=== PATIENT | male | born 1955 | race Caucasian/White ===

== ENCOUNTER 2017-09-01 12:01 | Observation (INO) | payer OTHER ==
[2017-09-01] MEDS ORDERED: Lactated Ringers 1,000 ML IV SCH (13:30)
[2017-09-01] MEDS ORDERED: Levofloxacin/Dextrose 5%-Water 750 MG in Premix Bag 1 BAG IV SCH (13:30)
--- NOTE | 2017-09-01 13:34 | EDM.PDOC ---
ED HPI GENERAL MEDICAL PROBLEM - General Chief Complaint: Lower Extremity Injury/Pain Stated Complaint: CAME FROM CLINIC Time Seen by Provider: 09/01/17 12:51 Source of Information: Reports: Patient, Family, Provider, RN Notes Reviewed History Limitations: Reports: No Limitations - History of Present Illness INITIAL COMMENTS - FREE TEXT/NARRATIVE: 62-year-old gentleman sent over from clinic for evaluation of sepsis, initially presented to the clinic for evaluation of ongoing leg pain and bruise on his leg does have a history of alcohol abuse and dependence has had a history of recent falls fell about 3 days ago initial evaluation by Ms Gregorio clinic provider which included a CBC and BMP and urinalysis, WBC slightly elevated around 12 urine was positive with many bacteria as well as WBCs in urine and positive leukocyte esterase. I did discuss case with her she asked for further evaluation for sepsis and thus he presented to the emergency department. At this time he does admit to having a fever at home with some chills denies any other symptoms such as urinary difficulty no shortness of breath or chest pain he does have a bruise on his right leg he states this happened about 3 days ago when he fell on the floor he does admit to heavy alcohol abuse and dependence usually drinks a sixpack of beer with 3 or 4 shots per evening. Family members are present state the amount alcohol has increased as of late due to social stressors Right Leg Pain Score (Numeric/FACES): 5 - Related Data Allergies Allergy/AdvReac Type Severity Reaction Status Date / Time venom-honey bee Allergy Severe Anaphylactic Verified 09/01/17 14:14 [bee venom (honey bee)] Shock Home Meds: Home Meds *Epi-Pen 0.3 mg IM ASDIRECTED PRN 12/12/12 [History] *Lidocaine Patch 1 patch TOP DAILY 12/12/12 [History] Diltiazem HCl [Diltiazem 24Hr Cd] 240 mg PO DAILY 12/12/12 [History] Pravastatin [Pravachol] 20 mg PO BEDTIME 12/12/12 [History] Valsartan [Diovan] 160 mg PO DAILY 12/12/12 [History] hydroCHLOROthiazide [Hydrochlorothiazide] 25 mg PO DAILY 12/12/12 [History] tiZANidine HCl [Tizanidine HCl] 4 mg PO DAILY 12/12/12 [History] Past Medical History HEENT History: Reports: Cataract, Impaired Vision Cardiovascular History: Reports: Hypertension - Infectious Disease History Infectious Disease History: Reports: TB - Past Surgical History HEENT Surgical History: Reports: Cataract Surgery GI Surgical History: Reports: Colonoscopy Social & Family History - Tobacco Use Smoking Status *Q: Never Smoker - Caffeine Use Caffeine Use: Reports: None - Alcohol Use Days Per Week of Alcohol Use: 7 Number of Drinks Per Day: 10 Total Drinks Per Week: 70 Date of Last Drink: 08/31/17 Time of Last Drink: 20:00 - Recreational Drug Use Recreational Drug Use: No Review of Systems - Review of Systems Review Of Systems: See Below Constitutional: Reports: Chills, Fever Eyes: Reports: No Symptoms Ears: Reports: No Symptoms Nose: Reports: No Symptoms Mouth/Throat: Reports: No Symptoms Respiratory: Reports: No Symptoms Cardiovascular: Reports: No Symptoms GI/Abdominal: Reports: No Symptoms Genitourinary: Reports: No Symptoms Musculoskeletal: Reports: No Symptoms Skin: Reports: No Symptoms ED EXAM, GENERAL - Physical Exam Exam: See Below Free Text/Narrative:: General: Male, not in any distress, alert and oriented x3 HEENT: head is atraumatic normocephalic, eyes pupils equal round reactive to light, sclera clear no conjunctivitis appreciated. Ears tympanic membranes clear and valencia landmarks and light reflex are present bilaterally canals are clear. Nose no septal deviation, nares are clear, no blood present. Mouth mucosa is moist and pink no erythema or exudate noted in soft palate, tongue is midline uvula is midline, dentition is intact. Neck: Supple no thyromegaly no tracheal deviation. Nodes: Cervical nodes subclavicular nodes nontender no palpable lymphadenopathy noted. Lungs: clear to auscultation bilaterally with symmetrical respirations, no adventitious noise appreciated. CV: Regular rate and rhythm S1 and S2 appreciated no murmurs rubs or gallops noted. Abdomen: Soft, nontender, no palpable masses or organomegaly appreciated, no distention no guarding bowel sounds are present, . Neuro: Cranial nerves II through XII grossly intact Skin: Warm and dry, intact, large hematoma appreciated on the right thigh size 12 cm x 6 cm Extremities: No lower extremity edema appreciated, Course - Vital Signs Last Recorded V/S: Last Vital Signs Temp 101.2 F H 09/01/17 14:25 Pulse 92 09/01/17 14:25 Resp 14 09/01/17 14:25 BP 119/66 09/01/17 14:25 Pulse Ox 98 09/01/17 14:25 - Orders/Labs/Meds Orders: Active Orders 24 hr Category Date Time Status Vital Signs [RC] Q1H Care 09/01/17 13:25 Active CULTURE BLOOD [BC] Urgent Lab 09/01/17 13:30 Received CULTURE BLOOD [BC] Urgent Lab 09/01/17 13:43 Received Lactated Ringers [Ringers, Lactated] 1,000 ml Med 09/01/17 13:30 Active IV ASDIRECTED Levofloxacin/Dextrose 5%-Water [Levaquin in D5W 750 MG/ Med 09/01/17 13:30 Active 150 ML] 750 mg Premix Bag 1 bag IV Q24H Potassium Chloride 20 meq Med 09/01/17 14:30 Active Lidocaine 1% [Xylocaine 1%] 2 ml Sodium Chloride 0.9% [Normal Saline] 100 ml IV ONETIME Blood Culture x2 Reflex Set [OM.PC] Urgent Oth 09/01/17 13:25 Ordered Medication Orders Lactated Ringer's (Ringers, Lactated) 1,000 mls @ 999 mls/hr IV ASDIRECTED [facility] Last Admin: 09/01/17 13:46 Dose: 999 mls/hr Levofloxacin/Dextrose 750 mg/ (Premix) 150 mls @ 100 mls/hr IV Q24H [facility] Last Admin: 09/01/17 13:49 Dose: 100 mls/hr Potassium Chloride 20 meq/Lidocaine HCl 2 ml/ Sodium Chloride 112 mls @ 56 mls/ hr IV ONETIME ONE Stop: 09/01/17 16:29 Last Admin: 09/01/17 14:32 Dose: 56 mls/hr Labs: Laboratory Tests 09/01/17 09/01/17 09/01/17 Range/Units 13:43 13:43 13:43 Sodium 125 L (140-148) mmol/L Potassium 2.4 L* (3.6-5.2) mmol/L Chloride 87 L (100-108) mmol/L Carbon Dioxide 30 (21-32) mmol/L Anion Gap 10.4 (5.0-14.0) mmol/L BUN 21 H (7-18) mg/dL Creatinine 1.7 H (0.8-1.3) mg/dL Est Cr Clr Drug Dosing 42.47 mL/min Estimated GFR (MDRD) 41 L (>60) Glucose 100 (74-106) mg/dL Lactic Acid 1.0 (0.4-2.0) mmol/L Calcium 8.3 L (8.5-10.1) mg/dL Total Bilirubin 0.4 (0.2-1.0) mg/dL AST 28 (15-37) U/L ALT 40 (12-78) U/L Alkaline Phosphatase 79 (46-116) U/L Creatine Kinase 44 (39-308) U/L C-Reactive Protein 13.72 H (0.0-0.3) mg/dL Total Protein 6.8 (6.4-8.2) g/dL Albumin 2.5 L (3.4-5.0) g/dL Globulin 4.3 H (2.3-3.5) g/dL Albumin/Globulin Ratio 0.6 L (1.2-2.2) Ethyl Alcohol mg/dL 09/01/17 Range/Units 13:43 Sodium (140-148) mmol/L Potassium (3.6-5.2) mmol/L Chloride (100-108) mmol/L Carbon Dioxide (21-32) mmol/L Anion Gap (5.0-14.0) mmol/L BUN (7-18) mg/dL Creatinine (0.8-1.3) mg/dL Est Cr Clr Drug Dosing mL/min Estimated GFR (MDRD) (>60) Glucose (74-106) mg/dL Lactic Acid (0.4-2.0) mmol/L Calcium (8.5-10.1) mg/dL Total Bilirubin (0.2-1.0) mg/dL AST (15-37) U/L ALT (12-78) U/L Alkaline Phosphatase (46-116) U/L Creatine Kinase (39-308) U/L C-Reactive Protein (0.0-0.3) mg/dL Total Protein (6.4-8.2) g/dL Albumin (3.4-5.0) g/dL Globulin (2.3-3.5) g/dL Albumin/Globulin Ratio (1.2-2.2) Ethyl Alcohol < 3 mg/dL Meds: Medications Generic Name Dose Route Start Last Admin Trade Name Freq PRN Reason Stop Dose Admin Lactated Ringer's 1,000 mls @ 999 mls/hr 09/01/17 13:30 09/01/17 13:46 Ringers, Lactated IV 999 mls/hr ASDIRECTED VINICIUS Administration Levofloxacin/Dextrose 750 mg/ 150 mls @ 100 mls/hr 09/01/17 13:30 09/01/17 13 :49 Premix IV 100 mls/hr Q24H [facility] Administration Potassium Chloride 20 meq/ 112 mls @ 56 mls/hr 09/01/17 14:30 09/01/17 14:32 Lidocaine HCl 2 ml/ Sodium IV 09/01/17 16:29 56 mls/hr Chloride ONETIME ONE Administration Discontinued Medications Generic Name Dose Route Start Last Admin Trade Name Freq PRN Reason Stop Dose Admin Potassium Chloride 40 meq 09/01/17 14:05 09/01/17 14:15 Klor-Con M20 PO 09/01/17 14:06 40 meq ONETIME ONE Administration Departure - Departure Time of Disposition: 14:41 Disposition: Admitted As Inpatient 64 Condition: Fair Clinical Impression: UTI (urinary tract infection) Qualifiers: Urinary tract infection type: acute cystitis Hematuria presence: with hematuria Qualified Code(s): N30.01 - Acute cystitis with hematuria Alcohol dependence Qualifiers: Substance use status: uncomplicated Qualified Code(s): F10.20 - Alcohol dependence, uncomplicated - Discharge Information Referrals: PCP,None [Primary Care Provider] - Forms: ED Department Discharge - My Orders Last 24 Hours: My Active Orders 09/01/17 13:25 Vital Signs [RC] Q1H Blood Culture x2 Reflex Set [OM.PC] Urgent 09/01/17 13:30 CULTURE BLOOD [BC] Urgent Lactated Ringers [Ringers, Lactated] 1,000 ml IV ASDIRECTED Levofloxacin/Dextrose 5%-Water [Levaquin in D5W 750 MG/150 ML] 750 mg Premix Bag 1 bag IV Q24H 09/01/17 13:43 CULTURE BLOOD [BC] Urgent 09/01/17 14:30 Potassium Chloride 20 meq Lidocaine 1% [Xylocaine 1%] 2 ml Sodium Chloride 0.9 % [Normal Saline] 100 ml IV ONETIME - Assessment/Plan Last 24 Hours: My Active Orders 09/01/17 13:25 Vital Signs [RC] Q1H Blood Culture x2 Reflex Set [OM.PC] Urgent 09/01/17 13:30 CULTURE BLOOD [BC] Urgent Lactated Ringers [Ringers, Lactated] 1,000 ml IV ASDIRECTED Levofloxacin/Dextrose 5%-Water [Levaquin in D5W 750 MG/150 ML] 750 mg Premix Bag 1 bag IV Q24H 09/01/17 13:43 CULTURE BLOOD [BC] Urgent 09/01/17 14:30 Potassium Chloride 20 meq Lidocaine 1% [Xylocaine 1%] 2 ml Sodium Chloride 0.9 % [Normal Saline] 100 ml IV ONETIME Plan: Assessment Acuity = acute Site and laterality = urinary tract infection complicated in a gentleman known history of alcohol abuse and dependence Etiology = probable bacterial cause Manifestations = none Location of injury = Home Lab values = sodium low at 125 consistent hyponatremia, potassium low at 2.4 consistent with hypokalemia, creatinine elevated 1.7 consistent with acute renal failure stage GIII a CRP elevated 13.7 albumin low at 2.5 consistent hypoalbuminemia alcohol was negative Plan He was given 1 L of fluids, initially started on 40 mEq potassium orally and 20 mEq IV, started on antibiotics of Levaquin called discussed case with hospitalist education reporter he agreed to come and evaluate the patient emergency department for admission This note was dictated using [employer] voice recognition software please call with any questions on syntax or grammar.
[2017-09-01] MEDS ORDERED: Potassium Chloride 20 MEQ Tab.ER PO ONE (14:05)
[2017-09-01] MEDS ORDERED: Potassium Chloride 20 MEQ, Lidocaine 1% 2 ML in Sodium Chloride 0.9% 100 ML IV SCH (14:15)
[2017-09-01] MEDS ORDERED: Potassium Chloride 20 MEQ, Lidocaine 1% 2 ML in Sodium Chloride 0.9% 100 ML IV ONE (14:30)
--- NOTE | 2017-09-01 15:32 | PCM.HP ---
H&P History of Present Illness - General Date of Service: 09/01/17 Admit Problem/Dx: Admission Diagnosis/Problem Admission Diagnosis/Problem Hypokalemia Source of Information: Patient, Family, Provider History Limitations: Reports: No Limitations - History of Present Illness Initial Comments - Free Text/Narative: Fabio presents to the ER from the clinic. He presented to the clinic with right hip pain after a fall. Laboratory workup in the clinic revealed evidence for urinary tract infection, leukocytosis and some concern for sepsis so he was sent to the emergency room. He reports over the last few days he has been feeling weak and tired. He has not had much of an appetite and has not ate very well. Oral intake including fluids has been less than usual as well. He has had some subjective fevers over the past couple of days and was febrile in the clinic this morning. He reports some intermittent weakness and did have a fall last night. He is currently reporting mild to moderate right lateral hip pain described as achy. He hasn't taken anything to make the pain. Moving makes the pain worse. He has not had abdominal pain, nausea or vomiting. No dysuria or increased urinary frequency. Work up in the emergency room revealed hyponatremia, hypokalemia and acute kidney injury. CRP is elevated at more than 12. He will be admitted for IV antibiotics for his infection as well as potassium supplementation and hydration. Right Leg Pain Score (Numeric/FACES): 5 - Related Data Allergies/Adverse Reactions: Allergies Allergy/AdvReac Type Severity Reaction Status Date / Time venom-honey bee Allergy Severe Anaphylactic Verified 09/01/17 14:14 [bee venom (honey bee)] Shock Home Medications: Home Meds *Epi-Pen 0.3 mg IM ASDIRECTED PRN 12/12/12 [History] *Lidocaine Patch 1 patch TOP DAILY 12/12/12 [History] Diltiazem HCl [Diltiazem 24Hr Cd] 240 mg PO DAILY 12/12/12 [History] Pravastatin [Pravachol] 20 mg PO BEDTIME 12/12/12 [History] Valsartan [Diovan] 160 mg PO DAILY 12/12/12 [History] hydroCHLOROthiazide [Hydrochlorothiazide] 25 mg PO DAILY 12/12/12 [History] tiZANidine HCl [Tizanidine HCl] 4 mg PO BEDTIME 12/12/12 [History] Past Medical History HEENT History: Reports: Cataract, Impaired Vision Cardiovascular History: Reports: Hypertension - Infectious Disease History Infectious Disease History: Reports: TB - Past Surgical History HEENT Surgical History: Reports: Cataract Surgery GI Surgical History: Reports: Colonoscopy Social & Family History - Family History Neurological: Reports: Other (See Below) (tremor - father and brothers) - Tobacco Use Smoking Status *Q: Never Smoker - Caffeine Use Caffeine Use: Reports: None - Alcohol Use Days Per Week of Alcohol Use: 7 Number of Drinks Per Day: 10 Total Drinks Per Week: 70 Date of Last Drink: 08/31/17 Time of Last Drink: 20:00 - Recreational Drug Use Recreational Drug Use: No H&P Review of Systems - Review of Systems: Review Of Systems: See Below Free Text/Narrative: A complete 12 point review of systems was obtained. Pertinent positives and negatives are noted in the history of present illness. All other systems were reviewed and were negative except as noted. Exam - Exam Exam: See Below - Vital Signs Vital Signs: Last Vital Signs Temp 38.4 C H 09/01/17 14:25 Pulse 93 09/01/17 15:00 Resp 16 09/01/17 15:00 BP 124/74 09/01/17 15:00 Pulse Ox 98 09/01/17 14:25 Weight: 73.482 kg - Exam Quality Assessment: No: Supplemental Oxygen General: Alert, Oriented, Cooperative. No: Mild Distress HEENT: Conjunctiva Clear, Pupils Equal. No: Mucosa Moist & [place] (dry), Scleral Icterus Neck: Supple, Trachea Midline. No: Lymphadenopathy, Thyromegaly Lungs: Clear to Auscultation, Normal Respiratory Effort Cardiovascular: Regular Rate, Regular Rhythm. No: Systolic Murmur GI/Abdominal Exam: Normal Bowel Sounds, Soft, No Distention, Tender (mild suprapubic) Back Exam: Normal Inspection. No: Full Range of Motion Extremities: No Pedal Edema. No: Increased Warmth Skin: Warm, Dry, Ecchymosis (right lateral thigh in oval shape) Neuro Extensive - Mental Status: Alert, Oriented x3, Nl Response to Commands Neuro Extensive - Motor, Sensory, Reflexes: CN II-XII Intact, Tremor. No: Dysarthria, Abnormal Motor Psychiatric: Alert, Normal Affect - Patient Data Lab Results Last 24 hrs: Laboratory Results - last 24 hr 09/01/17 09/01/17 09/01/17 Range/Units 13:43 13:43 13:43 Sodium 125 L (140-148) mmol/L Potassium 2.4 L* (3.6-5.2) mmol/L Chloride 87 L (100-108) mmol/L Carbon Dioxide 30 (21-32) mmol/L Anion Gap 10.4 (5.0-14.0) mmol/L BUN 21 H (7-18) mg/dL Creatinine 1.7 H (0.8-1.3) mg/dL Est Cr Clr Drug Dosing 42.47 mL/min Estimated GFR (MDRD) 41 L (>60) Glucose 100 (74-106) mg/dL Lactic Acid 1.0 (0.4-2.0) mmol/L Calcium 8.3 L (8.5-10.1) mg/dL Total Bilirubin 0.4 (0.2-1.0) mg/dL AST 28 (15-37) U/L ALT 40 (12-78) U/L Alkaline Phosphatase 79 (46-116) U/L Creatine Kinase 44 (39-308) U/L C-Reactive Protein 13.72 H (0.0-0.3) mg/dL Total Protein 6.8 (6.4-8.2) g/dL Albumin 2.5 L (3.4-5.0) g/dL Globulin 4.3 H (2.3-3.5) g/dL Albumin/Globulin Ratio 0.6 L (1.2-2.2) Ethyl Alcohol mg/dL 09/01/17 Range/Units 13:43 Sodium (140-148) mmol/L Potassium (3.6-5.2) mmol/L Chloride (100-108) mmol/L Carbon Dioxide (21-32) mmol/L Anion Gap (5.0-14.0) mmol/L BUN (7-18) mg/dL Creatinine (0.8-1.3) mg/dL Est Cr Clr Drug Dosing mL/min Estimated GFR (MDRD) (>60) Glucose (74-106) mg/dL Lactic Acid (0.4-2.0) mmol/L Calcium (8.5-10.1) mg/dL Total Bilirubin (0.2-1.0) mg/dL AST (15-37) U/L ALT (12-78) U/L Alkaline Phosphatase (46-116) U/L Creatine Kinase (39-308) U/L C-Reactive Protein (0.0-0.3) mg/dL Total Protein (6.4-8.2) g/dL Albumin (3.4-5.0) g/dL Globulin (2.3-3.5) g/dL Albumin/Globulin Ratio (1.2-2.2) Ethyl Alcohol < 3 mg/dL Result Diagrams: 09/01/17 13:43 *Q Meaningful Use (ADM) - VTE Risk Assess *Q Each Risk Factor Represents 1 Point: None Total Score 1 Point Risk Factors: 0 Each Risk Factor Represents 2 Points: Age 60 - 74 Years Total Score 2 Point Risk Factors: 2 Each Risk Factor Represents 3 Points: None Total Score 3 Point Risk Factors: 0 Each Risk Factor Represents 5 Points: None Total Score 5 Point Risk Factors: 0 Venous Thromboembolism Risk Factor Score *Q: 2 - Problem List (1) Hypokalemia SNOMED Code(s): 34697408 ICD Code: E87.6 - HYPOKALEMIA Status: Acute Current Visit: Yes (2) Acute kidney injury SNOMED Code(s): 14390536 ICD Code: N17.9 - ACUTE KIDNEY FAILURE, UNSPECIFIED Status: Acute Current Visit: Yes (3) UTI (urinary tract infection) SNOMED Code(s): 58353477 ICD Code: N39.0 - URINARY TRACT INFECTION, SITE NOT SPECIFIED Status: Acute Current Visit: Yes Qualifiers: Urinary tract infection type: acute cystitis Hematuria presence: with hematuria Qualified Code(s): N30.01 - Acute cystitis with hematuria (4) Memory loss SNOMED Code(s): 583389237 ICD Code: R41.3 - OTHER AMNESIA Status: Acute Current Visit: Yes (5) Alcohol dependence SNOMED Code(s): 31093414 ICD Code: F10.20 - ALCOHOL DEPENDENCE, UNCOMPLICATED Status: Acute Current Visit: Yes Qualifiers: Substance use status: uncomplicated Qualified Code(s): F10.20 - Alcohol dependence, uncomplicated (6) Essential hypertension SNOMED Code(s): 06459988 ICD Code: I10 - ESSENTIAL (PRIMARY) HYPERTENSION Status: Chronic Current Visit: Yes Problem List Initiated/Reviewed/Updated: Yes Orders Last 24hrs: Active Orders 24 hr Category Date Time Status Patient Status Manage Transfer [TRANSFER] Routine ADT 09/01/17 15:21 Ordered Vital Signs [RC] Q1H Care 09/01/17 13:25 Active CULTURE BLOOD [BC] Urgent Lab 09/01/17 13:30 Received CULTURE BLOOD [BC] Urgent Lab 09/01/17 13:43 Received Lactated Ringers [Ringers, Lactated] 1,000 ml Med 09/01/17 13:30 Active IV ASDIRECTED Levofloxacin/Dextrose 5%-Water [Levaquin in D5W 750 MG/ Med 09/01/17 13:30 Active 150 ML] 750 mg Premix Bag 1 bag IV Q24H Potassium Chloride 20 meq Med 09/01/17 14:30 Active Lidocaine 1% [Xylocaine 1%] 2 ml Sodium Chloride 0.9% [Normal Saline] 100 ml IV ONETIME Blood Culture x2 Reflex Set [OM.PC] Urgent Oth 09/01/17 13:25 Ordered Resuscitation Status Routine Resus Stat 09/01/17 15:23 Ordered Medication Orders Lactated Ringer's (Ringers, Lactated) 1,000 mls @ 999 mls/hr IV ASDIRECTED [facility] Last Admin: 09/01/17 13:46 Dose: 999 mls/hr Levofloxacin/Dextrose 750 mg/ (Premix) 150 mls @ 100 mls/hr IV Q24H [facility] Last Admin: 09/01/17 13:49 Dose: 100 mls/hr Potassium Chloride 20 meq/Lidocaine HCl 2 ml/ Sodium Chloride 112 mls @ 56 mls/ hr IV ONETIME ONE Stop: 09/01/17 16:29 Last Admin: 09/01/17 14:32 Dose: 56 mls/hr Assessment/Plan Comment:: ASSESSMENT AND PLAN - Hypokalemia - significant decrease in potassium level, likely combination of poor intake with chronic losses secondary to alcohol and Dyazide diuretic use. He has received 60 mEq in the emergency room. -IV fluid with potassium -Repeat level this evening, replace as indicated -Check magnesium level and replace as indicated -Repeat level in the morning Acute kidney injury - secondary to poor intake as well as chronic losses from alcohol dependence. -IV fluids -Repeat labs in the morning Acute cystitis - urine sample strongly suggestive of infection. This could be contributing to his weakness as well as the memory issues as discussed below. He has received levofloxacin in the emergency room. -Reassess antibiotics in the morning -Follow-up urine culture Memory deficits - family reports declining cognitive function with more acute decompensation in the past couple of weeks. Patient does have significant stressors as his is on hospice. Suspect toxic/metabolic with contribution from acute distress. -Head CT to rule out intracranial cause -TSH and B-12 levels in the morning -Outpatient follow-up Alcohol dependence - patient has been drinking 6 beers per night for many many years. No history of alcohol withdrawal. -Counseling about safe alcohol intake Maintenance issues - - DVT prophylaxis - mechanical - GI prophylaxis - not indicated - Nutrition - regular diet - Tuttle catheter - not indicated CODE STATUS - full code Admission justification - patient will be referred observation status for potassium replacement and hydration. Disposition - anticipate discharge to home tomorrow Primary care physician - Ricardo Cameron M.D.
[2017-09-01] MEDS ORDERED: Ondansetron 4 MG/2 ML SDV IV PRN (16:04)
[2017-09-01] MEDS ORDERED: Ondansetron 4 MG Tab.DIS PO PRN (16:04)
[2017-09-01] MEDS ORDERED: Acetaminophen 325 MG Tab PO PRN (16:04)
[2017-09-01] MEDS ORDERED: Ibuprofen 600 MG Tab PO PRN (16:04)
[2017-09-01] MEDS: NS + KCl 20mEq/L 1,000 ML IV SCH (16:59)
[2017-09-01] MEDS ORDERED: Pravastatin 20 MG Tab PO SCH (21:00)
[2017-09-01] MEDS ORDERED: TIZANIDINE HCL 4 MG PO SCH (21:00)
[2017-09-01] MEDS ORDERED: Lidocaine 5% 700 MG Patch TRDERM SCH (21:00)
[2017-09-01] MEDS ORDERED: LIDOCAINE TOP SCH (21:00)
[2017-09-01] MEDS ORDERED: tiZANidine 4 MG Tab PO SCH (21:00)
[2017-09-01] MEDS ORDERED: PRAVASTATIN 20 MG PO SCH (21:00)
--- NOTE | 2017-09-02 00:29 | PCM.SN ---
- Free Text/Narrative Note: time : 2029; call from [address] [place] [address] O: lab Potassium 3.2, last Potassium 2.4 at 15:59 patient has received Potassium 80meq total since admission, has IV fluids with Potassium 20meq per liter A: Hypokalemia resolving P: continue IV fluids with Potassium, recheck Potassium in am.
[2017-09-02] MEDS: NS + KCl 20mEq/L 1,000 ML IV SCH ×2 (00:55→08:35)
[2017-09-02] MEDS ORDERED: Potassium Chloride 20 MEQ Tab.ER PO ONE (09:00)
[2017-09-02] MEDS ORDERED: VALSARTAN 160 MG PO SCH (09:00)
[2017-09-02] MEDS ORDERED: Hydrochlorothiazide 25 MG Tab PO SCH (09:00)
[2017-09-02] MEDS ORDERED: Diltiazem 120 MG Cap.CD PO SCH (09:00)
[2017-09-02] MEDS ORDERED: Non-Formulary Medication 1 Each (Hydrochlorothiazide [Hydrochlorothiazide] 25 MG) PO SCH (09:00)
[2017-09-02] MEDS ORDERED: Non-Formulary Medication 1 Each (Diltiazem Hcl [Diltiazem 24hr Cd] 240 MG) PO SCH (09:00)
--- NOTE | 2017-09-02 09:03 | CR ---
CHEST: 2 view CLINICAL HISTORY:Fever COMPARISON:None FINDINGS: Heart and pulmonary vascularity are normal. Lung ely are clear.. IMPRESSION: No acute cardiac pulmonary process
[2017-09-02] MEDS ORDERED: Ciprofloxacin 500 MG Tab PO SCH (12:00)
[2017-09-02] MEDS ORDERED: Cefdinir 300 MG Cap PO SCH (12:15)
--- NOTE | 2017-09-02 13:41 | PCM.DCSUM1 ---
Discharge Summary - Hospital Course Brief History: 62-year-old male with history of essential hypertension, alcohol dependence and essential tremor who presented with right leg pain after a fall at home. He was admitted for management of a urinary tract infection, hypokalemia and generalized weakness. Diagnosis: Stroke: No - Discharge Data Discharge Date: 09/02/17 Discharge Disposition: Home, Self-Care 01 Condition: Fair - Discharge Diagnosis/Problem(s) (1) Hypokalemia SNOMED Code(s): 28308512 ICD Code: E87.6 - HYPOKALEMIA Status: Acute Current Visit: Yes (2) Acute kidney injury SNOMED Code(s): 15467501 ICD Code: N17.9 - ACUTE KIDNEY FAILURE, UNSPECIFIED Status: Acute Current Visit: Yes (3) UTI (urinary tract infection) SNOMED Code(s): 23436387 ICD Code: N39.0 - URINARY TRACT INFECTION, SITE NOT SPECIFIED Status: Acute Current Visit: Yes Qualifiers: Urinary tract infection type: acute cystitis Hematuria presence: with hematuria Qualified Code(s): N30.01 - Acute cystitis with hematuria (4) Memory loss SNOMED Code(s): 506318293 ICD Code: R41.3 - OTHER AMNESIA Status: Acute Current Visit: Yes (5) Alcohol dependence SNOMED Code(s): 81892954 ICD Code: F10.20 - ALCOHOL DEPENDENCE, UNCOMPLICATED Status: Acute Current Visit: Yes Qualifiers: Substance use status: uncomplicated Qualified Code(s): F10.20 - Alcohol dependence, uncomplicated (6) Essential hypertension SNOMED Code(s): 08111992 ICD Code: I10 - ESSENTIAL (PRIMARY) HYPERTENSION Status: Chronic Current Visit: Yes - Patient Summary/Data Consults: Consultations 09/02/17 09:12 PT Evaluation and Treatment [CONS] Routine Please Evaluate and Treat. PT Reason for Consult: Strengthening This query below is only for informational purposes and is not editable. Admission Diagnosis/Problem: Hypokalemia Hospital Course: Fabio presented to the clinic initially with right thigh pain. Laboratory studies in the clinic revealed mild leukocytosis, probable urinary tract infection as well as an elevated sedimentation rate. He was sent to the emergency room with concerns for early sepsis. In the emergency room he did not display signs of sepsis. C-reactive protein was noted to be elevated and his potassium level was quite low at 2.4. There was also evidence for acute kidney injury with a creatinine of 1.7. He was started on IV fluids and given 60 mEq of potassium in the emergency room. He was also given antibiotics for the infection. He was admitted to the hospital for observation and additional potassium replacement as well as additional hydration. Overnight there were no acute issues. Kidney function has returned to nearly normal. Potassium level has improved with supplementation. He has not had any fevers overnight. He did work with physical therapy this morning and does not require any assistance. He is able to ambulate effectively without any support. He has been transitioned to oral antibiotics. I believe he is safe for outpatient management at this time. He will have 8 additional days of antibiotic therapy for his complicated urinary tract infection. I did provide information about potassium rich foods. He also received counseling about the safe alcohol intake recommendations. At the time of presentation there was concern on the part of both the patient and the daughter about memory issues. A head CT was obtained and this was entirely normal with no abnormalities mentioned. We checked B-12 and thyroid levels and these were both well in the normal range. He has follow-up planned with his primary care physician for further evaluation. - Patient Instructions Diet: Regular Diet as Tolerated Activity: As Tolerated Driving, Other: May resume driving on Tuesday Showering/Bathing: May Shower Notify Provider of: Fever, Increased Pain, Nausea and/or Vomiting Other/Special Instructions: 1. You were in the hospital for management of a urinary tract infection as well as hypokalemia and acute kidney injury. Your infection has been improving with antibiotic therapy. The potassium level has improved with supplementation. Your kidney function is now back to normal after hydration. I would recommend eating a diet rich in potassium and have included information about the potassium content of food. You should drink approximately 64 ounces of water each day to maintain hydration. I have provided a prescription for cefdinir. This is an antibiotic that will continue to treat your urinary tract infection. You should take this medication twice daily with food for 16 more doses. Your next dose is due tonight. 2. At the time of admission you had concerns about a slow decline in your memory. A CT scan of your brain was normal with no abnormal findings. Your B-12 and thyroid levels were normal. I would recommend that you follow-up with your primary care for further evaluation. 3. The current recommendation is that males consume 2 beers per day or less. Drinking more than 2 beers per day can increase your risk for liver injury/damage as well as increase your risk for cancers of the gastrointestinal tract. Excess alcohol can also lead to difficulty with memory as well as irreversible damage to the brain and a variety of other medical problems. 4. Please seek medical attention if you develop fever greater than 101, you have weakness that limits your activities of daily living or if you develop persistent vomiting or diarrhea. - Discharge Plan *PRESCRIPTION DRUG MONITORING PROGRAM REVIEWED*: Not Applicable *COPY OF PRESCRIPTION DRUG MONITORING REPORT IN PATIENT MIHCAEL: Not Applicable Prescriptions/Med Rec: Cefdinir [Omnicef] 300 mg PO BID #16 cap Home Medications: Home Meds *Epi-Pen 0.3 mg IM ASDIRECTED PRN 12/12/12 [History] *Lidocaine Patch 1 patch TOP DAILY 12/12/12 [History] Diltiazem HCl [Diltiazem 24Hr Cd] 240 mg PO DAILY 12/12/12 [History] Pravastatin [Pravachol] 20 mg PO BEDTIME 12/12/12 [History] Valsartan [Diovan] 160 mg PO DAILY 12/12/12 [History] hydroCHLOROthiazide [Hydrochlorothiazide] 25 mg PO DAILY 12/12/12 [History] tiZANidine HCl [Tizanidine HCl] 4 mg PO BEDTIME 12/12/12 [History] Cefdinir [Omnicef] 300 mg PO BID #16 cap 09/02/17 [Rx] Patient Handouts: Cefdinir capsules, Urinary Tract Infection, Adult, Potassium Content of Foods Referrals: PCP,Not In Area [Ordering Only Provider] - ([facility] for a potassium recheck and hospital follow-up) - Discharge Summary/Plan Comment DC Time >30 min.: No - Patient Data Vitals - Most Recent: Last Vital Signs Temp 36.8 C 09/02/17 11:27 Pulse 89 09/02/17 11:27 Resp 16 09/02/17 11:27 BP 140/75 09/02/17 11:27 Pulse Ox 98 09/02/17 11:27 Weight - Most Recent: 70.488 kg I&O - Last 24 hours: Intake & Output 09/01/17 09/02/17 09/02/17 22:59 06:59 14:59 Intake Total 400 2391 1080 Output Total 325 1400 275 Balance 75 991 805 Lab Results - Last 24 hrs: Laboratory Results - last 24 hr 09/01/17 09/01/17 09/01/17 Range/Units 13:43 13:43 13:43 WBC (4.5-11.0) K/uL RBC (4.30-5.90) M/uL Hgb (12.0-15.0) g/dL Hct (40.0-54.0) % MCV (80-98) fL MCH (27-31) pg MCHC (32-36) % Plt Count (150-400) K/uL Sodium 125 L (140-148) mmol/L Potassium 2.4 L* (3.6-5.2) mmol/L Chloride 87 L (100-108) mmol/L Carbon Dioxide 30 (21-32) mmol/L Anion Gap 10.4 (5.0-14.0) mmol/L BUN 21 H (7-18) mg/dL Creatinine 1.7 H (0.8-1.3) mg/dL Est Cr Clr Drug Dosing 42.47 mL/min Estimated GFR (MDRD) 41 L (>60) Glucose 100 (74-106) mg/dL Lactic Acid 1.0 (0.4-2.0) mmol/L Calcium 8.3 L (8.5-10.1) mg/dL Magnesium (1.8-2.4) mg/dL Total Bilirubin 0.4 (0.2-1.0) mg/dL AST 28 (15-37) U/L ALT 40 (12-78) U/L Alkaline Phosphatase 79 (46-116) U/L Creatine Kinase 44 (39-308) U/L C-Reactive Protein 13.72 H (0.0-0.3) mg/dL Total Protein 6.8 (6.4-8.2) g/dL Albumin 2.5 L (3.4-5.0) g/dL Globulin 4.3 H (2.3-3.5) g/dL Albumin/Globulin Ratio 0.6 L (1.2-2.2) Vitamin B12 (193-986) pg/ml TSH, Ultra Sensitive (0.358-3.740) uIU/mL Ethyl Alcohol mg/dL 09/01/17 09/01/17 09/01/17 Range/Units 13:43 16:09 19:52 WBC (4.5-11.0) K/uL RBC (4.30-5.90) M/uL Hgb (12.0-15.0) g/dL Hct (40.0-54.0) % MCV (80-98) fL MCH (27-31) pg MCHC (32-36) % Plt Count (150-400) K/uL Sodium (140-148) mmol/L Potassium 3.2 L (3.6-5.2) mmol/L Chloride (100-108) mmol/L Carbon Dioxide (21-32) mmol/L Anion Gap (5.0-14.0) mmol/L BUN (7-18) mg/dL Creatinine (0.8-1.3) mg/dL Est Cr Clr Drug Dosing mL/min Estimated GFR (MDRD) (>60) Glucose (74-106) mg/dL Lactic Acid (0.4-2.0) mmol/L Calcium (8.5-10.1) mg/dL Magnesium 1.8 (1.8-2.4) mg/dL Total Bilirubin (0.2-1.0) mg/dL AST (15-37) U/L ALT (12-78) U/L Alkaline Phosphatase (46-116) U/L Creatine Kinase (39-308) U/L C-Reactive Protein (0.0-0.3) mg/dL Total Protein (6.4-8.2) g/dL Albumin (3.4-5.0) g/dL Globulin (2.3-3.5) g/dL Albumin/Globulin Ratio (1.2-2.2) Vitamin B12 (193-986) pg/ml TSH, Ultra Sensitive (0.358-3.740) uIU/mL Ethyl Alcohol < 3 mg/dL 09/02/17 09/02/17 Range/Units 05:00 05:00 WBC 10.3 (4.5-11.0) K/uL RBC 3.80 L (4.30-5.90) M/uL Hgb 11.6 L (12.0-15.0) g/dL Hct 33.7 L (40.0-54.0) % MCV 89 (80-98) fL MCH 31 (27-31) pg MCHC 34 (32-36) % Plt Count 349 (150-400) K/uL Sodium 130 L (140-148) mmol/L Potassium 3.2 L (3.6-5.2) mmol/L Chloride 95 L (100-108) mmol/L Carbon Dioxide 25 (21-32) mmol/L Anion Gap 13.2 (5.0-14.0) mmol/L BUN 18 (7-18) mg/dL Creatinine 1.2 (0.8-1.3) mg/dL Est Cr Clr Drug Dosing 60.17 mL/min Estimated GFR (MDRD) > 60 (>60) Glucose 91 (74-106) mg/dL Lactic Acid (0.4-2.0) mmol/L Calcium 8.0 L (8.5-10.1) mg/dL Magnesium (1.8-2.4) mg/dL Total Bilirubin (0.2-1.0) mg/dL AST (15-37) U/L ALT (12-78) U/L Alkaline Phosphatase (46-116) U/L Creatine Kinase (39-308) U/L C-Reactive Protein (0.0-0.3) mg/dL Total Protein (6.4-8.2) g/dL Albumin (3.4-5.0) g/dL Globulin (2.3-3.5) g/dL Albumin/Globulin Ratio (1.2-2.2) Vitamin B12 940 (193-986) pg/ml TSH, Ultra Sensitive 0.690 (0.358-3.740) uIU/mL Ethyl Alcohol mg/dL Med Orders - Current: Current Medications Acetaminophen (Tylenol) 650 mg PO Q4H PRN PRN Reason: Pain (Mild 1-3)/fever Last Admin: 09/02/17 05:14 Dose: 650 mg Cefdinir (Omnicef) 300 mg PO BID [facility] Last Admin: 09/02/17 12:56 Dose: 300 mg Diltiazem HCl (Cardizem Cd) 240 mg PO DAILY [facility] Last Admin: 09/02/17 08:34 Dose: 240 mg Hydrochlorothiazide (Hydrochlorothiazide) 25 mg PO DAILY [facility] Last Admin: 09/02/17 08:34 Dose: 25 mg Ibuprofen (Motrin) 600 mg PO Q6H PRN PRN Reason: Pain/Fever Last Admin: 09/01/17 17:02 Dose: 600 mg Lidocaine (Lidoderm 5%) 700 mg TRDERM BEDTIME [facility] Last Admin: 09/01/17 20:44 Dose: 700 mg Miscellaneous Information (Remove Patch) 1 ea TRDERM DAILY [facility] Last Admin: 09/02/17 08:33 Dose: Not Given Ondansetron HCl (Zofran Odt) 4 mg PO Q6H PRN PRN Reason: Nausea able to take PO Ondansetron HCl (Zofran) 4 mg IV Q6H PRN PRN Reason: Nausea/Vomiting Pravastatin Sodium (Pravachol) 20 mg PO BEDTIME [facility] Last Admin: 09/01/17 20:45 Dose: 20 mg Senna/Docusate Sodium (Senna Plus) 1 tab PO BID PRN PRN Reason: Constipation Tizanidine HCl (Zanaflex) 4 mg PO BEDTIME [facility] Last Admin: 09/01/17 20:45 Dose: 4 mg Valsartan (Diovan) 160 mg PO DAILY [facility] Last Admin: 09/02/17 08:34 Dose: 160 mg Discontinued Medications Ciprofloxacin (Ciprofloxacin Hcl) 500 mg PO BIDAC [facility] Last Admin: 09/02/17 13:04 Dose: Not Given Lactated Ringer's (Ringers, Lactated) 1,000 mls @ 999 mls/hr IV ASDIRECTED [facility] Last Admin: 09/01/17 13:46 Dose: 999 mls/hr Levofloxacin/Dextrose 750 mg/ (Premix) 150 mls @ 100 mls/hr IV Q24H [facility] Last Admin: 09/01/17 13:49 Dose: 100 mls/hr Potassium Chloride 20 meq/Lidocaine HCl 2 ml/ Sodium Chloride 112 mls @ 56 mls/ hr IV ONETIME ONE Stop: 09/01/17 16:29 Last Admin: 09/01/17 14:32 Dose: 56 mls/hr Potassium Chloride/Sodium Chloride (Normal Saline With 20 Meq Kcl) 1,000 mls @ 125 mls/hr IV ASDIRECTED [facility] Last Admin: 09/02/17 08:35 Dose: 125 mls/hr Potassium Chloride (Klor-Con M20) 40 meq PO ONETIME ONE Stop: 09/01/17 14:06 Last Admin: 09/01/17 14:15 Dose: 40 meq Potassium Chloride (Klor-Con M20) 40 meq PO ONETIME ONE Stop: 09/02/17 09:01 Last Admin: 09/02/17 09:55 Dose: 40 meq - Exam Quality Assessment: Denies: Supplemental Oxygen General: Reports: Alert, Oriented, Cooperative, No Acute Distress Neck: Reports: Supple Lungs: Reports: Normal Respiratory Effort Cardiovascular: Reports: Regular Rate, Regular Rhythm GI/Abdominal Exam: No Distention Extremities: No Pedal Edema, Other (bruise on right lateral thigh) Psy/Mental Status: Reports: Alert, Normal Affect
== END 2017-09-02 14:10 | disposition home or self-care (01) ==
LOC: JP.ED 12:01 → JP.MS 15:21
PROVIDERS: ADMIT Internal Medicine; ATTEND Internal Medicine
DX: M79.651 Pain in right thigh (principal); N30.00 Acute cystitis without hematuria; E87.6 Hypokalemia; E87.1 Hypo-osmolality and hyponatremia; N17.9 Acute kidney failure, unspecified; R41.3 Other amnesia; I10 Essential (primary) hypertension; F10.20 Alcohol dependence, uncomplicated; W19.XXXA Unspecified fall, initial encounter
CPT/HCPCS: 36415; 70450; 71046; 80048; 80053; 82550; 82607; 83605; 83735; 84132; 84443; 85027; 86140; 87040; 96365; 97161; 99285; A9270; G0480; J1956; J3480; J7030; J7120

== ENCOUNTER 2020-10-06 07:17 | Day surgery (SDC) | payer OTHER ==
[2020-10-06] MEDS ORDERED: fentaNYL 100 MCG/2 ML SDV ONE (08:00)
[2020-10-06] MEDS ORDERED: Sodium Chloride 0.9% 1,000 ML IV SCH (08:00)
[2020-10-06] MEDS ORDERED: Propofol 200 MG/20 ML SDV ONE (08:00)
[2020-10-06] MEDS ORDERED: Midazolam 1 MG/ML 2 ML SDV ONE (08:00)
--- NOTE | 2020-10-07 08:55 | OR ---
DATE OF PROCEDURE: 10/06/2020 SURGEON: Ayush Darling MD PROCEDURE: Colonoscopy. FINDINGS: Normal colonoscopy. COMPLICATIONS: None. POLISHER NUMERAL: None. ANESTHESIA: MAC. PREOPERATIVE DIAGNOSIS: Screening colonoscopy. POSTOPERATIVE DIAGNOSIS: Screening colonoscopy. RISKS: Risks, benefits, alternatives, and limitations including but not limited to infection, bleeding, perforation, false positives and false negatives were explained to the patient and he wished to proceed. PROCEDURE IN DETAIL: The patient was placed in a left lateral decubitus position. Digital rectal exam was performed without abnormality. Scope was introduced and advanced atraumatically to the ileocecal valve. A photo was taken of the appendiceal orifice. Scope was brought back to the ascending, transverse, descending colon, and retroflexed. No evidence of old or new blood. No masses. No polyps. No diverticulosis. No colitis. The prep was acceptable, approximately 90% of the luminal surface could be seen. Greater than 8 minutes was spent removing the scope. No abnormalities on retroflexion. The patient tolerated the procedure well. Ayush Darling MD /[id number]
== END 2020-10-06 10:35 | disposition home or self-care (01) ==
LOC: JP.SDS 07:17
PROVIDERS: ATTEND Surgery
DX: Z12.11 Encounter for screening for malignant neoplasm of colon (principal); I10 Essential (primary) hypertension; E78.5 Hyperlipidemia, unspecified; M54.9 Dorsalgia, unspecified; F03.90 Unspecified dementia, unspecified severity, without behavioral disturbance, psychotic disturbance, mood disturbance, and anxiety; Z91.030 Bee allergy status
CPT/HCPCS: 45378; J2250; J2704; J3010; J7030